=== PATIENT | female | born 1970 | race American Indian/Alaskan Native ===

== ENCOUNTER 2021-05-25 04:08 | Emergency (ER) | payer BC ==
[2021-05-25 04:39] VITALS: BP 130/51
[2021-05-25 07:06] LABS: Amphetamine Screen,Urine Negative; Benzodiazepines Screen,Urine Negative; Cannabinoid Screen,Urine Negative; Cocaine Screen,Urine Negative; Methadone Screen,Urine Negative; Opiate Screen,Urine Negative
[2021-05-25] MEDS ORDERED: LORazepam 1 MG TAB PO ONE (07:14)
--- NOTE | 2021-05-25 07:18 | Emergency Department Report ---
ED General Adult HPI - General Chief complaint: Arrhythmia/Palpitations Stated complaint: PALPITATIONS Time Seen by Provider: 05/25/21 06:09 Source: patient Mode of arrival: Ambulatory Limitations: No Limitations - History of Present Illness Initial comments: 52-year-old female denies any significant past medical history presents to the ER today with complaints of palpitations. Patient states that she has been having these palpitations off and on for the past month. She states that she has been to [facility] for symptoms twice, and both times it was likely related to anxiety. She states that the recall to the EKG but does not recall doing any blood work. She states that she is also spoken to her primary care doctor about it and primary care doctor also diagnosed her anxiety. She does admit that her mom who she has been taking care of for a long time about a month ago. She states that she has been having difficulty sleeping. She has tried [id number] Benadryl and drink tea to help her sleep but has not been helping. She states that the reason she came in today is because she has been having the palpitations, she could not sleep last night, and she has symptomatically related to anxiety but wanted to get checked out to make sure it was nothing else. She denies any illicit drug use. She states that she does not drink any caffeinated products. She has not been on any weight loss medications recently. She denies any fever chills, chest pain, shortness of breath, syncope, calf pain or lower extremity swelling or any additional symptoms MD Complaint: palpitations -: week(s) Severity scale (0 -10): 0 - Related Data Previous Rx's Medication Instructions Recorded Last Taken Type cephALEXin [Keflex] 500 mg PO Q8HR #21 cap 05/25/21 Unknown Rx hydrOXYzine HCL [Atarax] 25 mg PO Q6HR PRN #20 tablet 05/25/21 Unknown Rx Allergies Allergy/AdvReac Type Severity Reaction Status Date / Time No Known Allergies Allergy Unverified 05/25/21 04:24 ED Review of Systems ROS: Stated complaint: PALPITATIONS Other details as noted in HPI Comment: All other systems reviewed and negative Constitutional: denies: chills, fever Eyes: denies: eye pain, eye discharge, vision change ENT: denies: ear pain, throat pain, dental pain, hearing loss, epistaxis, congestion Respiratory: denies: cough, shortness of breath, SOB with exertion, SOB at rest, wheezing Cardiovascular: palpitations. denies: chest pain, dyspnea on exertion, orthopnea, edema, syncope, paroxysmal nocturnal dyspnea Gastrointestinal: denies: abdominal pain, nausea, diarrhea, constipation, hematemesis, melena, hematochezia Genitourinary: denies: urgency, dysuria, frequency, hematuria, discharge, abnormal menses, dyspareunia Musculoskeletal: denies: back pain, joint swelling, arthralgia Skin: denies: rash, lesions, change in color, change in hair/nails, pruritus Neurological: denies: headache, weakness, numbness, paresthesias, abnormal gait, vertigo Psychiatric: anxiety. denies: depression, auditory hallucinations, visual hallucinations, homicidal thoughts, suicidal thoughts Hematological/Lymphatic: denies: easy bleeding, easy bruising, swollen glands ED Past Medical Hx - Past Medical History Previous Medical History?: No - Surgical History Past Surgical History?: No - Medications Home Medications: Home Medications Medication Instructions Recorded Confirmed Last Taken Type cephALEXin [Keflex] 500 mg PO Q8HR #21 cap 05/25/21 Unknown Rx hydrOXYzine HCL [Atarax] 25 mg PO Q6HR PRN #20 tablet 05/25/21 Unknown Rx ED Physical Exam - General Limitations: No Limitations General appearance: alert, in no apparent distress - Head Head exam: Present: atraumatic, normocephalic, normal inspection - Eye Eye exam: Present: normal appearance, PERRL, EOMI Pupils: Present: normal accommodation - ENT ENT exam: Present: TM's normal bilaterally - Neck Neck exam: Present: normal inspection - Respiratory Respiratory exam: Present: normal lung sounds bilaterally. Absent: respiratory distress, wheezes, rales, rhonchi - Cardiovascular Cardiovascular Exam: Present: regular rate, normal rhythm, normal heart sounds - GI/Abdominal GI/Abdominal exam: Present: soft. Absent: distended, tenderness, guarding - Neurological Exam Neurological exam: Present: alert, oriented X3, CN II-XII intact, normal gait - Psychiatric Psychiatric exam: Present: normal affect, normal mood. Absent: homicidal ideation, suicidal ideation - Skin Skin exam: Present: intact ED Course Vital Signs 05/25/21 04:38 Temperature 98.4 F Pulse Rate 78 Respiratory 18 Rate Blood Pressure 130/51 [Right] O2 Sat by Pulse 99 Oximetry ED Medical Decision Making - Lab Data Result diagrams: 05/25/21 10:19 05/25/21 08:17 - EKG Data EKG shows normal: sinus rhythm - EKG Data Interpretation: normal EKG - Radiology Data Radiology results: report reviewed Patient: ASHER FONSECA MR#: [id number] 0 : 1970 Acct:[id number] Age/Sex: 51 / F ADM Date: 05/25/21 Loc: ED Attending Dr: Ordering Physician: BRYAN QUIROZ Date of Service: 05/25/21 Procedure(s): XR chest 1V ap Accession Number(s): [id number] cc: BRYAN QUIROZ Fluoro Time In Minutes: CHEST 1 VIEW INDICATION / CLINICAL INFORMATION: palpitations. COMPARISON: None available. FINDINGS: SUPPORT DEVICES: None. HEART / MEDIASTINUM: No significant abnormality. LUNGS / PLEURA: No significant pulmonary or pleural abnormality. No pneumothorax. ADDITIONAL FINDINGS: No significant additional findings. IMPRESSION: 1. No acute findings. Signer Name: Latisha Armstrong MD Signed: 05/25/2021 7:54 AM Workstation Name: [id number] Transcribed By: JR Dictated By: Latisha Armstrong MD Electronically Authenticated By: Latisha Armstrong MD Signed Date/Time: 05/25/21753 DD/ 1 TD/TT: - Medical Decision Making All labs reviewed --CBC shows leukopenia with white count of 1.1; this was repeated just to make sure this that was a lab error and repeat was 1.4; absolute neutrophil count calculation showed moderate neutropenia. I initially discussed lab results with patient, and she stated that she does not recall ever being told by her primary care doctor that she had abnormalities to her white count but on discharge when I mentioned that she would need to see a delimer she then remembered that her primary care doctor did refer her to see a "cancer" specialist because she had similar issues with her white count being low. She states that this was back in 2016. She states that she has not continue to see the delimer. She has continued to be monitored by her PCP and he has not mentioned any changes. Patient given a copy of her results, and recommended that she follow-up with her PCP to ensure that the values I received here today is consistent with her outpatient labs. Urine is concerning for UTI but the remainder of her work-up unremarkable. Patient overall is not toxic, she is not ill-appearing, she is not in any significant distress. She is neurologically intact with normal gait. She has no meningeal signs on exam. Chest is clear to auscultation. She is hemodyn amically stable. Her symptoms could definitely be related to her anxiety. Recommend she follows up with her PCP to help manage her anxiety. She will be started on antibiotics for UTI. Patient expressed understanding of all instructions and agree with plan. Patient was stable at time of discharge. Critical care attestation.: If time is entered above; I have spent that time in minutes in the direct care of this critically ill patient, excluding procedure time. ED Disposition Clinical Impression: Palpitations, UTI (urinary tract infection), Leukopenia, Anxiety Disposition: 01 HOME / SELF CARE / HOMELESS Is pt being admited?: No Does the pt Need Aspirin: No Condition: Stable Instructions: White Blood Cell Count Test, Urinary Tract Infection, Adult, [id number], Palpitations, [id number]-[id number]-[id number], Managing Anxiety, Adult Additional Instructions: I recommend that you take the Keflex as prescribed to help with your UTI. Take the antibiotics as prescribed to help with sleep and anxiety but I do recommend that you follow-up with your primary care doctor to further help manage your anxiety. Most apparently your white blood cell count today very low at 1.1, and the repeat was 1.4. You will need to follow-up with your primary care doctor 1st thing next week for referral to hematology. A delimer will also be given to you on your discharge instructions for follow-up, recommend that you call to set up an appointment for follow-up to rule out causes of low white count such as cancer or HIV or any other causes. I recommend that you return to the ER if at any point you develop any fever, worsening or changing of your symptoms. Prescriptions: hydrOXYzine HCL [Atarax] 25 mg PO Q6HR PRN #20 tablet PRN Reason: Anxiety cephALEXin [Keflex] 500 mg PO Q8HR #21 cap Referrals: HILDA MOSQEUDA MD [Primary Care Provider] - 3-5 Days Forms: Work/School Release Form(ED) Time of Disposition: 11:44
[2021-05-25 07:36] LABS: Bacteria,Urine 1+ /HPF (Negative); Bilirubin,Urine NEG (Negative); Blood,Urine NEG (Negative); Color,Urine Straw (Yellow); Protein,Urine <15 mg/dL mg/dL (Negative); Urobilinogen,Urine < 2.0 mg/dL (<2.0)
--- NOTE | 2021-05-25 07:58 | XRay Report ---
CHEST 1 VIEW INDICATION / CLINICAL INFORMATION: palpitations. COMPARISON: None available. FINDINGS: SUPPORT DEVICES: None. HEART / MEDIASTINUM: No significant abnormality. LUNGS / PLEURA: No significant pulmonary or pleural abnormality. No pneumothorax. ADDITIONAL FINDINGS: No significant additional findings. IMPRESSION: 1. No acute findings. Signer Name: Latisha Armstrong MD Signed: 05/25/2021 7:54 AM Workstation Name: [id number]
[2021-05-25 08:48] LABS: Hematocrit 41.6 % (30.3-42.9); Hemoglobin 13.5 gm/dl (10.1-14.3); Mean Corpuscular HGB Conc 32 % (30-34); Mean Corpuscular Volume 89 fl (79-97); Platelet Count 181 K/mm3 (140-440); Red Blood Count 4.69 M/mm3 (3.65-5.03); Red Cell Distribution Width 13.9 % (13.2-15.2)
[2021-05-25 09:02] LABS: Alanine Aminotransferase 23 units/L (7-56); Albumin 4.3 g/dL (3.9-5); Blood Urea Nitrogen 6 mg/dL (7-17); Calcium 9.8 mg/dL (8.4-10.2); Hemolysis Index 6
[2021-05-25 09:06] LABS: BUN/Creatinine Ratio 10
[2021-05-25 11:01] LABS: Hematocrit 41.5 % (30.3-42.9); Hemoglobin 13.6 gm/dl (10.1-14.3); Mean Corpuscular HGB Conc 33 % (30-34); Mean Corpuscular Volume 88 fl (79-97); Platelet Count 181 K/mm3 (140-440); Red Blood Count 4.71 M/mm3 (3.65-5.03); Red Cell Distribution Width 13.5 % (13.2-15.2)
[2021-05-25 11:55] LABS: Total Cells Counted 50
[2021-05-25 11:56] LABS: Platelet Estimate Consistent w Auto; RBC Morphology Normal
[2021-05-25 16:44] LABS: Band Neutrophils # (Manual) 0.1 K/mm3; Total Cells Counted 50
[2021-05-25 16:45] LABS: Platelet Estimate Consistent w Auto
[2021-05-25 16:46] LABS: RBC Morphology Normal
--- NOTE | 2021-05-25 18:17 | Electrocardiograph Report ---
[facility] Test Date: 2021-05-25 Test Time: 04:23:47 Pat Name: ASHER FONSECA Department: Room: Gender: F Stubber: CHETNA : 1970 Requested By: TEREZA VEGA Order Number: [id number] Reading MD: Scott Clark Measurements Intervals [place] Rate: 64 P: 25 CA: 167 QRS: -29 QRSD: 91 T: 45 QT: 404 QTc: 418 Interpretive Statements Sinus rhythm No previous ECG available for comparison Electronically Signed On 05-25-2021 18:17:24 EST by Scott Clark
== END 2021-05-25 12:03 | disposition home or self-care (01) ==
LOC: ED 04:08
DX: R00.2 Palpitations (principal); N39.0 Urinary tract infection, site not specified; D72.819 Decreased white blood cell count, unspecified; F41.9 Anxiety disorder, unspecified; Z79.899 Other long term (current) drug therapy
CPT/HCPCS: 36415; 71045; 80053; 80307; 81001; 84443; 84484; 85007; 85025; 87086; 93005; 99284